=== PATIENT | female | born 1950 | race Caucasian/White ===

== ENCOUNTER 2023-06-27 14:04 | Inpatient (IN) | payer BC, MEDICARE ==
[~2023-06-27] VITALS: Ht 147.3 cm; Wt 73.9 kg
[2023-06-27 14:04] VITALS: BP_SYST 170; PULSE 72; RESP 14; TEMP 97.4; O2SAT 97
[2023-06-27] MEDS ORDERED: METF-379 PO (14:35)
[2023-06-27] MEDS ORDERED: GABA300T25 PO (14:35)
[2023-06-27] MEDS ORDERED: OXYB10TA30 PO (14:35)
[2023-06-27] MEDS ORDERED: GEMF600T89 PO (14:35)
[2023-06-27] MEDS ORDERED: ATEN50TA PO (14:35)
[2023-06-27] MEDS ORDERED: FURO-150 PO (14:37)
[2023-06-27] MEDS ORDERED: [UNRECOGNIZED DRUG - CODE] PO (14:39)
[2023-06-27 14:45] LABS: BASOPHILS # (AUTO) 0.1 K/uL (0.0-0.2); BASOPHILS % (AUTO) 0.6 % (0.0-2.0); EOSINOPHILS # (AUTO) 0.5 K/uL (0.0-0.4); EOSINOPHILS % (AUTO) 5.1 % (0.0-4.0); HEMATOCRIT 37.5 % (36-48); LYMPHOCYTES # (AUTO) 1.9 K/uL (1.0-5.5); LYMPHOCYTES % (AUTO) 20.5 % (20.5-51.5); MEAN CORPUSCULAR HEMOGLOBIN 30 pg (27-31); MEAN CORPUSCULAR HGB CONC 35 % (32-36); MEAN CORPUSCULAR VOLUME 86 fL (79.0-98.0); MONOCYTES # (AUTO) 0.6 K/uL (0.0-1.0); MONOCYTES % (AUTO) 6.5 % (1.7-9.3); NEUTROPHILS # (AUTO) 6.1 K/uL (1.8-7.7); NEUTROPHILS % (AUTO) 67.3 % (40.0-70.0); PLATELET COUNT (AUTO) 257 K/uL (130-430); RED BLOOD CELL COUNT(AUTO) 4.34 MIL/uL (4.2-6.2); RED CELL DISTRIBUTION WIDTH 14.7 % (9.0-15.0)
[2023-06-27 14:53] LABS: ANION GAP 12 (5-15); CALCIUM 9.8 mg/dL (8.4-11.0); CARBON DIOXIDE 26 mmol/L (23-29); CHLORIDE 103 mmol/L (98-107); CREATININE 0.65 mg/dL (0.55-1.30); GLUCOSE 143 mg/dL (74-106); POTASSIUM 3.9 mmol/L (3.5-5.1); SODIUM SERUM 141 mmol/L (136-145); UREA NITROGEN, BLOOD 9 mg/dL (8-21)
[2023-06-27] MEDS ORDERED: IOHEXOL 350 mgI/mL, 150 ML INFUS..BTL IV ONE (16:09)
[2023-06-27 16:29] LABS: ALBUMIN 3.6 g/dL (3.4-4.8); BILIRUBIN,DIRECT 0.1 mg/dL (0.0-0.3); TOTAL BILIRUBIN 0.4 mg/dL (0.0-1.0)
[2023-06-27 17:12] LABS: BILIRUBIN,URINE NEGATIVE (NEGATIVE); BLOOD, URINE NEGATIVE (NEGATIVE); CLARITY/URINE CLEAR (CLEAR); COLOR,URINE YELLOW (YELLOW); GLUCOSE,URINE NEGATIVE (NEGATIVE); KETONES,URINE NEGATIVE (NEGATIVE); NITRITE, URINE NEGATIVE (NEGATIVE); PROTEIN URINE NEGATIVE (NEGATIVE); UROBILINOGEN,URINE 0.2 (0.2-1.0)
[2023-06-27 17:17] LABS: LEUKOCYTE ESTERASE ,URINE TRACE (NEGATIVE)
[2023-06-27 17:18] LABS: BACTERIA,URINE MODERATE /HPF (None Seen); MUCUS,URINE None Seen /LPF (None Seen); RBC,URINE 0-3 /HPF (0-3)
[2023-06-27 18:08] VITALS: BP_SYST 179; PULSE 73; RESP 19; TEMP 97.9; O2SAT 98
[2023-06-27] MEDS ORDERED: DEXTROSE 50% JECT 50 ML DISP.SYRIN IVP PRN (19:00)
[2023-06-27] MEDS ORDERED: GLUCOSE (DEXTROSE) ORAL GEL -Adults PO PRN (19:00)
[2023-06-27] MEDS ORDERED: D5W 1,000 ML IV PRN (19:00)
[2023-06-27] MEDS: hydrALAZINE HCL 20 MG/ML VIAL IVP PRN (20:23)
[2023-06-27] MEDS: D5/0.45 NS 1,000 ML IV SCH (20:23)
[2023-06-27] MEDS ORDERED: LORazepam 2 MG/ML VIAL IVP PRN (21:30)
[2023-06-27] MEDS ORDERED: ONDANSETRON HCL 4 MG/2 ML VIAL IVP PRN (21:30)
[2023-06-27 22:00] VITALS: BP_SYST 157; PULSE 74; RESP 20; TEMP 98.5; O2SAT 95
[2023-06-28 00:18] VITALS: BP_SYST 109; PULSE 80; RESP 16; TEMP 97.9; O2SAT 94
[2023-06-28 06:08] LABS: ALANINE AMINOTRANSFERASE 23 U/L (12-78); ALBUMIN 3.7 g/dL (3.4-4.8); ANION GAP 14 (5-15); ASPARTATE AMINOTRANSFERASE 17 U/L (10-37); CALCIUM 9.8 mg/dL (8.4-11.0); CARBON DIOXIDE 25 mmol/L (23-29); CHLORIDE 102 mmol/L (98-107); CREATININE 0.66 mg/dL (0.55-1.30); GLUCOSE 152 mg/dL (74-106); PHOSPHORUS 4.3 mg/dL (2.7-4.5); POTASSIUM 3.8 mmol/L (3.5-5.1); SODIUM SERUM 141 mmol/L (136-145); TOTAL BILIRUBIN 0.5 mg/dL (0.0-1.0); TOTAL PROTEIN, SERUM 7.3 g/dL (6.4-8.3); UREA NITROGEN, BLOOD 12 mg/dL (8-21)
[2023-06-28 06:10] LABS: BASOPHILS % (AUTO) 0.3 % (0.0-2.0); EOSINOPHILS # (AUTO) 0.2 K/uL (0.0-0.4); EOSINOPHILS % (AUTO) 1.4 % (0.0-4.0); HEMATOCRIT 37.8 % (36-48); HEMOGLOBIN 13.3 g/dL (12.0-16.0); LYMPHOCYTES % (AUTO) 18.4 % (20.5-51.5); MEAN CORPUSCULAR HEMOGLOBIN 30 pg (27-31); MEAN CORPUSCULAR HGB CONC 35 % (32-36); MEAN CORPUSCULAR VOLUME 85 fL (79.0-98.0); MONOCYTES # (AUTO) 0.5 K/uL (0.0-1.0); NEUTROPHILS % (AUTO) 74.9 % (40.0-70.0); PLATELET COUNT (AUTO) 277 K/uL (130-430); RED BLOOD CELL COUNT(AUTO) 4.44 MIL/uL (4.2-6.2); RED CELL DISTRIBUTION WIDTH 14.5 % (9.0-15.0); WHITE BLOOD COUNT (AUTO) 10.7 K/uL (4.8-10.8)
[2023-06-28] MEDS: D5/0.45 NS 1,000 ML IV SCH ×2 (06:57→15:00)
[2023-06-28 08:00] VITALS: BP_SYST 161; PULSE 71; RESP 18; TEMP 97.8; O2SAT 97
[2023-06-28] MEDS: hydrALAZINE HCL 20 MG/ML VIAL IVP PRN (09:00)
[2023-06-28] MEDS ORDERED: ASPIRIN 81 MG TAB.CHEW PO ONE (10:45)
[2023-06-28] MEDS ORDERED: ATORVASTATIN 20 MG TABLET PO ONE (11:00)
[2023-06-28] MEDS ORDERED: CLOPIDOGREL BISULFATE 75 MG TABLET PO ONE (11:00)
[2023-06-28 11:14] VITALS: BP_SYST 130; PULSE 89; RESP 16; TEMP 96.5; O2SAT 99
[2023-06-28] MEDS: ACETAMINOPHEN 325 MG TABLET PO PRN (11:27)
[2023-06-28 15:31] VITALS: BP_SYST 136; PULSE 85; RESP 16; TEMP 97.2; O2SAT 93
[2023-06-28] MEDS: INSULIN REGULAR, HUMAN 100 UNITS/ML, 3 ML VIAL (humuLIN R) SUBCUT PRN (19:11)
[2023-06-28 20:00] VITALS: BP_SYST 156; PULSE 89; RESP 18; TEMP 98.8; O2SAT 96
[2023-06-29] VITALS (7 sets, daily range): BP systolic 140–172; PULSE 70–89; RESP 16–18; TEMP 97–99; O2SAT 92–98
[2023-06-29] MEDS: D5/0.45 NS 1,000 ML IV SCH ×3 (00:40→21:09)
[2023-06-29] MEDS: INSULIN REGULAR, HUMAN 100 UNITS/ML, 3 ML VIAL (humuLIN R) SUBCUT PRN ×4 (00:47→17:51)
[2023-06-29] MEDS: ASPIRIN 81 MG TABLET(ECOTRIN) PO SCH (08:33)
[2023-06-29] MEDS: ATORVASTATIN 20 MG TABLET PO SCH (08:33)
[2023-06-29] MEDS: CLOPIDOGREL BISULFATE 75 MG TABLET PO SCH (08:33)
[2023-06-29] MEDS ORDERED: levoFLOXacin 500 MG TABLET PO ONE (13:00)
[2023-06-29] MEDS: hydrALAZINE HCL 20 MG/ML VIAL IVP PRN (21:09)
[2023-06-30] VITALS (7 sets, daily range): BP systolic 137–157; PULSE 70–90; RESP 16–20; TEMP 96.8–97.9; O2SAT 95–98
[2023-06-30] MEDS: INSULIN REGULAR, HUMAN 100 UNITS/ML, 3 ML VIAL (humuLIN R) SUBCUT PRN ×4 (00:38→17:09)
[2023-06-30] MEDS: ACETAMINOPHEN 325 MG TABLET PO PRN ×2 (01:41→10:45)
[2023-06-30 05:16] LABS: BASOPHILS # (AUTO) 0.1 K/uL (0.0-0.2); BASOPHILS % (AUTO) 0.5 % (0.0-2.0); EOSINOPHILS # (AUTO) 0.2 K/uL (0.0-0.4); EOSINOPHILS % (AUTO) 2.1 % (0.0-4.0); HEMATOCRIT 35.7 % (36-48); HEMOGLOBIN 12.7 g/dL (12.0-16.0); LYMPHOCYTES # (AUTO) 2.6 K/uL (1.0-5.5); LYMPHOCYTES % (AUTO) 23.8 % (20.5-51.5); MEAN CORPUSCULAR HEMOGLOBIN 30 pg (27-31); MEAN CORPUSCULAR HGB CONC 36 % (32-36); MEAN CORPUSCULAR VOLUME 85 fL (79.0-98.0); MONOCYTES # (AUTO) 0.9 K/uL (0.0-1.0); MONOCYTES % (AUTO) 8.1 % (1.7-9.3); NEUTROPHILS # (AUTO) 7.1 K/uL (1.8-7.7); NEUTROPHILS % (AUTO) 65.5 % (40.0-70.0); PLATELET COUNT (AUTO) 271 K/uL (130-430); RED BLOOD CELL COUNT(AUTO) 4.19 MIL/uL (4.2-6.2); RED CELL DISTRIBUTION WIDTH 14.8 % (9.0-15.0); WHITE BLOOD COUNT (AUTO) 10.8 K/uL (4.8-10.8)
[2023-06-30 05:42] LABS: ANION GAP 13 (5-15); CALCIUM 9.1 mg/dL (8.4-11.0); CARBON DIOXIDE 23 mmol/L (23-29); CHLORIDE 103 mmol/L (98-107); CREATININE 0.61 mg/dL (0.55-1.30); GLUCOSE 200 mg/dL (74-106); POTASSIUM 3.4 mmol/L (3.5-5.1); SODIUM SERUM 139 mmol/L (136-145); UREA NITROGEN, BLOOD 9 mg/dL (8-21)
[2023-06-30] MEDS ORDERED: POTASSIUM CHLORIDE 20 MEQ/PKT PACKET PO ONE (07:00)
[2023-06-30] MEDS: ATORVASTATIN 20 MG TABLET PO SCH (08:48)
[2023-06-30] MEDS: CLOPIDOGREL BISULFATE 75 MG TABLET PO SCH (08:48)
[2023-06-30] MEDS: levoFLOXacin 500 MG TABLET PO SCH (08:49)
[2023-06-30] MEDS: ASPIRIN 81 MG TABLET(ECOTRIN) PO SCH (08:56)
[2023-06-30] MEDS: D5/0.45 NS 1,000 ML IV SCH ×2 (08:57→17:00)
[2023-06-30] MEDS ORDERED: LOSARTAN POTASSIUM 25 MG TABLET PO SCH (09:00)
[2023-06-30] MEDS ORDERED: CLOP75TA32 PO (13:09)
[2023-06-30] MEDS ORDERED: ASA81 PO (13:09)
[2023-06-30] MEDS ORDERED: ATOR-1 PO (13:09)
[2023-06-30 14:37] LABS: CHOLESTEROL 187 mg/dL (<200); HDL CHOLESTEROL 51 mg/dL (>55); TRIGLYCERIDES 89 mg/dL (30-150)
[2023-06-30] MEDS: LOSARTAN POTASSIUM 25 MG TABLET PO SCH (23:01)
[2023-07-01] MEDS: INSULIN REGULAR, HUMAN 100 UNITS/ML, 3 ML VIAL (humuLIN R) SUBCUT PRN ×4 (01:26→17:16)
[2023-07-01 01:41] VITALS: BP_SYST 168; PULSE 85; RESP 18; TEMP 97.4; O2SAT 95
[2023-07-01 07:22] LABS: ANION GAP 13 (5-15); CALCIUM 9.9 mg/dL (8.4-11.0); CARBON DIOXIDE 23 mmol/L (23-29); CHLORIDE 103 mmol/L (98-107); CREATININE 0.55 mg/dL (0.55-1.30); GLUCOSE 167 mg/dL (74-106); POTASSIUM 3.5 mmol/L (3.5-5.1); SODIUM SERUM 139 mmol/L (136-145); UREA NITROGEN, BLOOD 14 mg/dL (8-21)
[2023-07-01 08:00] VITALS: BP_SYST 132; PULSE 85; RESP 17; TEMP 97.6; O2SAT 97
[2023-07-01 08:26] LABS: BASOPHILS % (AUTO) 0.5 % (0.0-2.0); EOSINOPHILS # (AUTO) 0.3 K/uL (0.0-0.4); EOSINOPHILS % (AUTO) 2.7 % (0.0-4.0); HEMATOCRIT 37.5 % (36-48); HEMOGLOBIN 13.1 g/dL (12.0-16.0); LYMPHOCYTES % (AUTO) 18.4 % (20.5-51.5); MEAN CORPUSCULAR HEMOGLOBIN 30 pg (27-31); MEAN CORPUSCULAR HGB CONC 35 % (32-36); MEAN CORPUSCULAR VOLUME 86 fL (79.0-98.0); MONOCYTES # (AUTO) 0.8 K/uL (0.0-1.0); MONOCYTES % (AUTO) 7.5 % (1.7-9.3); NEUTROPHILS # (AUTO) 7.7 K/uL (1.8-7.7); NEUTROPHILS % (AUTO) 70.9 % (40.0-70.0); PLATELET COUNT (AUTO) 260 K/uL (130-430); RED BLOOD CELL COUNT(AUTO) 4.38 MIL/uL (4.2-6.2); RED CELL DISTRIBUTION WIDTH 14.8 % (9.0-15.0); WHITE BLOOD COUNT (AUTO) 10.8 K/uL (4.8-10.8)
[2023-07-01] MEDS: D5/0.45 NS 1,000 ML IV SCH (09:06)
[2023-07-01] MEDS: CLOPIDOGREL BISULFATE 75 MG TABLET PO SCH (09:07)
[2023-07-01] MEDS: ASPIRIN 81 MG TABLET(ECOTRIN) PO SCH (09:07)
[2023-07-01] MEDS: levoFLOXacin 500 MG TABLET PO SCH (09:07)
[2023-07-01] MEDS: ATORVASTATIN 20 MG TABLET PO SCH (09:07)
[2023-07-01] MEDS: LOSARTAN POTASSIUM 25 MG TABLET PO SCH ×2 (09:08→20:05)
[2023-07-01 11:11] VITALS: BP_SYST 141; PULSE 83; RESP 18; TEMP 97.9; O2SAT 95
[2023-07-01] MEDS: ACETAMINOPHEN 325 MG TABLET PO PRN (11:43)
[2023-07-01] MEDS: NORMAL SALINE 5 ML DISP.SYRIN IVF SCH ×2 (14:00→20:06)
[2023-07-01 16:45] VITALS: BP_SYST 140; PULSE 78; RESP 17; TEMP 98; O2SAT 96
[2023-07-01 20:00] VITALS: BP_SYST 158; PULSE 75; RESP 18; TEMP 97.8; O2SAT 97
[2023-07-02] VITALS: BP_SYST 148; PULSE 78; RESP 18; TEMP 97.6; O2SAT 98
[2023-07-02] MEDS: INSULIN REGULAR, HUMAN 100 UNITS/ML, 3 ML VIAL (humuLIN R) SUBCUT PRN ×3 (06:17→20:52)
[2023-07-02] MEDS: NORMAL SALINE 5 ML DISP.SYRIN IVF SCH ×2 (06:21→16:55)
[2023-07-02 07:38] LABS: ANION GAP 10 (5-15); CALCIUM 9.3 mg/dL (8.4-11.0); CARBON DIOXIDE 26 mmol/L (23-29); CHLORIDE 103 mmol/L (98-107); CREATININE 0.53 mg/dL (0.55-1.30); GLUCOSE 158 mg/dL (74-106); POTASSIUM 3.5 mmol/L (3.5-5.1); SODIUM SERUM 139 mmol/L (136-145); UREA NITROGEN, BLOOD 13 mg/dL (8-21)
[2023-07-02 07:39] LABS: BASOPHILS % (AUTO) 0.4 % (0.0-2.0); EOSINOPHILS # (AUTO) 0.3 K/uL (0.0-0.4); EOSINOPHILS % (AUTO) 2.9 % (0.0-4.0); HEMATOCRIT 36.5 % (36-48); HEMOGLOBIN 12.7 g/dL (12.0-16.0); LYMPHOCYTES # (AUTO) 1.9 K/uL (1.0-5.5); LYMPHOCYTES % (AUTO) 17.6 % (20.5-51.5); MEAN CORPUSCULAR HEMOGLOBIN 30 pg (27-31); MEAN CORPUSCULAR HGB CONC 35 % (32-36); MEAN CORPUSCULAR VOLUME 85 fL (79.0-98.0); MONOCYTES # (AUTO) 0.8 K/uL (0.0-1.0); MONOCYTES % (AUTO) 7.3 % (1.7-9.3); NEUTROPHILS # (AUTO) 7.8 K/uL (1.8-7.7); NEUTROPHILS % (AUTO) 71.8 % (40.0-70.0); PLATELET COUNT (AUTO) 256 K/uL (130-430); RED BLOOD CELL COUNT(AUTO) 4.29 MIL/uL (4.2-6.2); RED CELL DISTRIBUTION WIDTH 14.6 % (9.0-15.0); WHITE BLOOD COUNT (AUTO) 10.8 K/uL (4.8-10.8)
[2023-07-02 07:59] LABS: ERYTHROCYTE SEDIMENTATION RATE 15 MM/HR (0-20)
[2023-07-02 08:00] VITALS: BP_SYST 142; PULSE 71; RESP 17; TEMP 97.4; O2SAT 97
[2023-07-02] MEDS: levoFLOXacin 500 MG TABLET PO SCH (09:14)
[2023-07-02] MEDS: CLOPIDOGREL BISULFATE 75 MG TABLET PO SCH (09:15)
[2023-07-02] MEDS: ASPIRIN 81 MG TABLET(ECOTRIN) PO SCH (09:15)
[2023-07-02] MEDS: ATORVASTATIN 20 MG TABLET PO SCH (09:15)
[2023-07-02] MEDS: LOSARTAN POTASSIUM 25 MG TABLET PO SCH ×2 (09:15→20:47)
[2023-07-02] MEDS ORDERED: ACETYLCYSTEINE PO ONE (09:30)
[2023-07-02 11:04] VITALS: BP_SYST 134; PULSE 44; RESP 16; TEMP 96.2; O2SAT 99
[2023-07-02 15:13] VITALS: BP_SYST 141; PULSE 88; RESP 16; TEMP 96.1; O2SAT 93
[2023-07-02] MEDS: ACETAMINOPHEN 325 MG TABLET PO PRN (16:55)
[2023-07-02 17:17] VITALS: BP_SYST 142; PULSE 71; RESP 17; TEMP 97.4; O2SAT 97
== END 2023-07-02 21:50 | DRG 65 ==
LOC: SED 14:04 → STU 16:14 → SMU 06-30 14:50
PROVIDERS: ADMIT Preventive Medicine Preventive Medicine/Occupational Environmental Medicine; ATTEND Preventive Medicine Preventive Medicine/Occupational Environmental Medicine
DX: I63.9 Cerebral infarction, unspecified (principal); G81.94 Hemiplegia, unspecified affecting left nondominant side; N39.0 Urinary tract infection, site not specified; I10 Essential (primary) hypertension; B96.1 Klebsiella pneumoniae [K. pneumoniae] as the cause of diseases classified elsewhere; Z20.822 Contact with and (suspected) exposure to COVID-19; R29.705 NIHSS score 5; R29.810 Facial weakness; R47.1 Dysarthria and anarthria; E11.65 Type 2 diabetes mellitus with hyperglycemia; Z88.0 Allergy status to penicillin; Z90.49 Acquired absence of other specified parts of digestive tract
CPT/HCPCS: 36415; 70450; 70496; 70498; 70551; 71045; 71275; 76376; 80048; 80053; 80061; 80076; 81000; 81001; 81015; 82962; 83735; 83880; 84100; 84484; 85025; 85610-TC; 85651-TC; 85730-TC; 86886; 86900; 86901; 87086; 92610-GN; 93005; 93306; 97110-GO; 97110-GP; 97112-GO; 97112-GP; 97116-GP; 97530-GP; 97535-GO; 99291; G0378; J0360; J1815; J2060; Q9967

== ENCOUNTER 2023-07-23 13:19 | Inpatient (IN) | payer MEDICARE ==
[~2023-07-23] VITALS: Ht 147.3 cm; Wt 69.4 kg
[~2023-07-23 13:19] MED LIST: ASA81 PO; ATEN50TA PO; ATOR-1 PO; CLOP75TA32 PO; FURO-150 PO; GABA300T25 PO; GEMF600T89 PO; METF-379 PO; OXYB10TA30 PO; [UNRECOGNIZED DRUG - CODE] PO
[2023-07-23 13:25] VITALS: BP_SYST 95; PULSE 66; RESP 18; TEMP 98.2; O2SAT 98
[2023-07-23 14:36] LABS: BASOPHILS # (AUTO) 0.1 K/uL (0.0-0.2); BASOPHILS % (AUTO) 0.8 % (0.0-2.0); EOSINOPHILS # (AUTO) 0.8 K/uL (0.0-0.4); EOSINOPHILS % (AUTO) 4.6 % (0.0-4.0); HEMATOCRIT 25.6 % (36-48); HEMOGLOBIN 8.7 g/dL (12.0-16.0); LYMPHOCYTES # (AUTO) 1.8 K/uL (1.0-5.5); LYMPHOCYTES % (AUTO) 10.8 % (20.5-51.5); MEAN CORPUSCULAR HEMOGLOBIN 30 pg (27-31); MEAN CORPUSCULAR HGB CONC 34 % (32-36); MEAN CORPUSCULAR VOLUME 87 fL (79.0-98.0); MONOCYTES # (AUTO) 0.9 K/uL (0.0-1.0); MONOCYTES % (AUTO) 5.4 % (1.7-9.3); NEUTROPHILS # (AUTO) 13.4 K/uL (1.8-7.7); NEUTROPHILS % (AUTO) 78.4 % (40.0-70.0); PLATELET COUNT (AUTO) 349 K/uL (130-430); RED BLOOD CELL COUNT(AUTO) 2.96 MIL/uL (4.2-6.2); RED CELL DISTRIBUTION WIDTH 15.4 % (9.0-15.0)
[2023-07-23] MEDS: NACL 0.9% 1,000 ML IV ONE ×2 (14:39→16:00)
[2023-07-23] MEDS ORDERED: ONDANSETRON HCL 4 MG/2 ML VIAL ONE (14:43)
[2023-07-23] MEDS: ONDANSETRON HCL 4 MG/2 ML VIAL IVP ONE (14:48)
[2023-07-23 14:53] LABS: ALANINE AMINOTRANSFERASE 16 U/L (12-78); ALBUMIN 2.5 g/dL (3.4-4.8); ANION GAP 13 (5-15); ASPARTATE AMINOTRANSFERASE 21 U/L (10-37); BILIRUBIN,DIRECT 0.2 mg/dL (0.0-0.3); CALCIUM 10.5 mg/dL (8.4-11.0); CARBON DIOXIDE 24 mmol/L (23-29); CHLORIDE 100 mmol/L (98-107); CREATININE 1.67 mg/dL (0.55-1.30); GLUCOSE 167 mg/dL (74-106); POTASSIUM 5.1 mmol/L (3.5-5.1); SODIUM SERUM 137 mmol/L (136-145); TOTAL BILIRUBIN 0.6 mg/dL (0.0-1.0); TOTAL PROTEIN, SERUM 6.3 g/dL (6.4-8.3)
[2023-07-23 14:57] LABS: UREA NITROGEN, BLOOD 113 mg/dL (8-21)
[2023-07-23] MEDS ORDERED: MULT-1193 PO (15:06)
[2023-07-23] MEDS ORDERED: DOCU-156 PO (15:06)
[2023-07-23] MEDS ORDERED: BISA10SU61 RC (15:06)
[2023-07-23] MEDS ORDERED: HYDR-3917 PO (15:06)
[2023-07-23] MEDS ORDERED: SENN8.6T19 PO (15:06)
[2023-07-23] MEDS ORDERED: MOM PO (15:06)
[2023-07-23] MEDS: D5/0.45 NS 1,000 ML IV SCH (17:00)
[2023-07-23] MEDS: PANTOPRAZOLE SODIUM 40 MG/VIAL (PROTONIX) IVP ONE (19:00)
[2023-07-23] MEDS ORDERED: PANTOPRAZOLE SODIUM 40 MG/VIAL (PROTONIX) ONE (19:31)
[2023-07-23] MEDS: PANTOPRAZOLE SODIUM 40 MG/VIAL (PROTONIX) IVP SCH (21:00)
[2023-07-23] MEDS ORDERED: NOREPINEPHRINE 4 MG/4 ML VIAL IV ONE (21:03)
[2023-07-23] MEDS: NOREPINEPHRINE BITARTRATE 4 MG in NS 246 ML IV PRN (21:50)
[2023-07-23 22:45] VITALS: BP_SYST 114; PULSE 65; RESP 17; O2SAT 99
[2023-07-23 23:00] VITALS: PULSE 70; RESP 13; O2SAT 99
[2023-07-24] VITALS (30 sets, daily range): BP systolic 90–160; PULSE 55–147; RESP 11–45; TEMP 97.4–98.1; O2SAT 99–100
[2023-07-24] MEDS: NOREPINEPHRINE 4 MG/4 ML VIAL IV ONE (03:49)
[2023-07-24 06:02] LABS: BASOPHILS # (AUTO) 0.1 K/uL (0.0-0.2); BASOPHILS % (AUTO) 0.4 % (0.0-2.0); EOSINOPHILS # (AUTO) 0.2 K/uL (0.0-0.4); EOSINOPHILS % (AUTO) 1.1 % (0.0-4.0); HEMATOCRIT 29.2 % (36-48); LYMPHOCYTES # (AUTO) 2.5 K/uL (1.0-5.5); LYMPHOCYTES % (AUTO) 11.6 % (20.5-51.5); MEAN CORPUSCULAR HEMOGLOBIN 30 pg (27-31); MEAN CORPUSCULAR HGB CONC 34 % (32-36); MEAN CORPUSCULAR VOLUME 89 fL (79.0-98.0); MONOCYTES # (AUTO) 1.4 K/uL (0.0-1.0); MONOCYTES % (AUTO) 6.6 % (1.7-9.3); NEUTROPHILS # (AUTO) 17.2 K/uL (1.8-7.7); NEUTROPHILS % (AUTO) 80.3 % (40.0-70.0); PLATELET COUNT (AUTO) 321 K/uL (130-430); RED BLOOD CELL COUNT(AUTO) 3.29 MIL/uL (4.2-6.2); WHITE BLOOD COUNT (AUTO) 21.4 K/uL (4.8-10.8)
[2023-07-24 06:23] LABS: CARBON DIOXIDE 22 mmol/L (23-29)
[2023-07-24 06:29] LABS: CHLORIDE 111 mmol/L (98-107); POTASSIUM 3.7 mmol/L (3.5-5.1); SODIUM SERUM 144 mmol/L (136-145)
[2023-07-24 06:30] LABS: ANION GAP 11 (5-15); CALCIUM 8.6 mg/dL (8.4-11.0); CREATININE 1.02 mg/dL (0.55-1.30); GLUCOSE 272 mg/dL (74-106); UREA NITROGEN, BLOOD 66 mg/dL (8-21)
[2023-07-24] MEDS ORDERED: LORazepam 2 MG/ML VIAL IVP PRN (08:30)
[2023-07-24] MEDS ORDERED: DOCUSATE SODIUM 100 MG CAPSULE PO PRN (08:30)
[2023-07-24] MEDS ORDERED: MUPIROCIN 2% TOPICAL OINTMENT 22 GM NS PRN (08:30)
[2023-07-24] MEDS ORDERED: MORPHINE 2 MG/ML INJ. SYRINGE IVP PRN ×2 (08:30)
[2023-07-24] MEDS ORDERED: NALOXONE HCL 0.4 MG/ML AMP (NARCAN) IVP PRN ×2 (08:30)
[2023-07-24] MEDS ORDERED: DEXTROSE 50% JECT 50 ML DISP.SYRIN IVP PRN (08:45)
[2023-07-24] MEDS ORDERED: PANTOPRAZOLE SODIUM 40 MG/VIAL (PROTONIX) IVP SCH (09:00)
[2023-07-24] MEDS ORDERED: ACETAMINOPHEN 500 MG TABLET PO PRN ×3 (09:15)
[2023-07-24] MEDS ORDERED: NOREPINEPHR 4 MG/250 mL NS 250 ML IV PRN (09:45)
[2023-07-24] MEDS: INSULIN LISPRO SLIDING SCALE 100 UNITS/ML, 3 ML VIAL (humaLOG) SUBCUT PRN (10:17)
[2023-07-24] MEDS ORDERED: IPRATROPIUM/ALBUTEROL SULFATE 3 ML AMPUL.NEB (DUONEB) INH PRN (11:15)
[2023-07-24] MEDS ORDERED: VANCOMYCIN HCL 750 MG in NS 250 ML IV SCH (12:00)
[2023-07-24] MEDS: metroNIDAZOLE 500 mg/NS 100 ML IV SCH (13:40)
[2023-07-24] MEDS: ONDANSETRON HCL 4 MG/2 ML VIAL IVP PRN (20:30)
[2023-07-24] MEDS: dilTIAZem HCL IVP 5 MG/ML VIAL IVP ONE (21:15)
[2023-07-24] MEDS: CEFEPIME 2 GM in D5W 100 ML IV SCH (21:45)
[2023-07-24 21:54] LABS: BASOPHILS % (AUTO) 0.3 % (0.0-2.0); EOSINOPHILS # (AUTO) 0.3 K/uL (0.0-0.4); EOSINOPHILS % (AUTO) 2.5 % (0.0-4.0); HEMOGLOBIN 7.6 g/dL (12.0-16.0); LYMPHOCYTES # (AUTO) 1.3 K/uL (1.0-5.5); LYMPHOCYTES % (AUTO) 12.6 % (20.5-51.5); MEAN CORPUSCULAR HEMOGLOBIN 31 pg (27-31); MEAN CORPUSCULAR HGB CONC 35 % (32-36); MEAN CORPUSCULAR VOLUME 90 fL (79.0-98.0); MONOCYTES # (AUTO) 0.6 K/uL (0.0-1.0); MONOCYTES % (AUTO) 5.6 % (1.7-9.3); NEUTROPHILS # (AUTO) 8.2 K/uL (1.8-7.7); PLATELET COUNT (AUTO) 204 K/uL (130-430); RED BLOOD CELL COUNT(AUTO) 2.41 MIL/uL (4.2-6.2); RED CELL DISTRIBUTION WIDTH 14.8 % (9.0-15.0); WHITE BLOOD COUNT (AUTO) 10.4 K/uL (4.8-10.8)
[2023-07-24 22:04] LABS: HEMATOCRIT 21.7 % (36-48)
[2023-07-24] MEDS: dilTIAZem HCL IVP 5 MG/ML VIAL ONE (22:34)
[2023-07-25] VITALS (23 sets, daily range): BP systolic 89–153; PULSE 70–116; RESP 14–34; TEMP 97.3–97.8; O2SAT 94–100
[2023-07-25 05:31] LABS: BASOPHILS % (AUTO) 0.4 % (0.0-2.0); EOSINOPHILS # (AUTO) 0.4 K/uL (0.0-0.4); EOSINOPHILS % (AUTO) 3.7 % (0.0-4.0); HEMATOCRIT 26.7 % (36-48); HEMOGLOBIN 9.2 g/dL (12.0-16.0); LYMPHOCYTES # (AUTO) 1.6 K/uL (1.0-5.5); LYMPHOCYTES % (AUTO) 13.4 % (20.5-51.5); MEAN CORPUSCULAR HEMOGLOBIN 30 pg (27-31); MEAN CORPUSCULAR HGB CONC 34 % (32-36); MEAN CORPUSCULAR VOLUME 89 fL (79.0-98.0); MONOCYTES # (AUTO) 0.7 K/uL (0.0-1.0); MONOCYTES % (AUTO) 6.4 % (1.7-9.3); NEUTROPHILS # (AUTO) 8.9 K/uL (1.8-7.7); NEUTROPHILS % (AUTO) 76.1 % (40.0-70.0); PLATELET COUNT (AUTO) 212 K/uL (130-430); RED BLOOD CELL COUNT(AUTO) 3.01 MIL/uL (4.2-6.2); WHITE BLOOD COUNT (AUTO) 11.7 K/uL (4.8-10.8)
[2023-07-25 05:59] LABS: ALANINE AMINOTRANSFERASE 19 U/L (12-78); ANION GAP 11 (5-15); ASPARTATE AMINOTRANSFERASE 17 U/L (10-37); CALCIUM 8.9 mg/dL (8.4-11.0); CARBON DIOXIDE 22 mmol/L (23-29); CHLORIDE 113 mmol/L (98-107); CHOLESTEROL 141 mg/dL (<200); CREATININE 0.63 mg/dL (0.55-1.30); GLUCOSE 166 mg/dL (74-106); HDL CHOLESTEROL 41 mg/dL (>55); LIPASE 43 U/L (16-77); POTASSIUM 3.2 mmol/L (3.5-5.1); SODIUM SERUM 146 mmol/L (136-145); THYROID STIMULATING HORMONE 5.63 uIu/mL (0.34-4.82); TOTAL BILIRUBIN 0.4 mg/dL (0.0-1.0); TRIGLYCERIDES 106 mg/dL (30-150); UREA NITROGEN, BLOOD 28 mg/dL (8-21)
[2023-07-25] MEDS: fentaNYL CITRATE/PF 100 MCG/2 ML AMP ONE (07:38)
[2023-07-25] MEDS: MIDAZOLAM HCL 5 MG/5 ML VIAL ONE (07:39)
[2023-07-25] MEDS: POTASSIUM CHLORIDE 20 MEQ TABLET.ER PO PRN (10:50)
[2023-07-25 14:09] LABS: BILIRUBIN,URINE 2+ (NEGATIVE); BLOOD, URINE NEGATIVE (NEGATIVE); CLARITY/URINE CLEAR (CLEAR); COLOR,URINE YELLOW (YELLOW); GLUCOSE,URINE NEGATIVE (NEGATIVE); KETONES,URINE NEGATIVE (NEGATIVE); LEUKOCYTE ESTERASE ,URINE NEGATIVE (NEGATIVE); NITRITE, URINE NEGATIVE (NEGATIVE); PROTEIN URINE NEGATIVE (NEGATIVE); UROBILINOGEN,URINE 0.2 (0.2-1.0)
[2023-07-25 14:27] LABS: BACTERIA,URINE None Seen /HPF (None Seen); MUCUS,URINE None Seen /LPF (None Seen); RBC,URINE 0-3 /HPF (0-3); WBC,URINE 0-3 /HPF (0-3)
[2023-07-25] MEDS ORDERED: BISACODYL 5 MG TABLET.DR (DULCOLAX) PO ONE (17:00)
[2023-07-25] MEDS: GOLYTELY / COLYTE SOLUTION 4 LITERS PO ONE (17:08)
[2023-07-25] MEDS: BISACODYL 5 MG TABLET.DR (DULCOLAX) PO ONE (17:58)
[2023-07-25] MEDS: ZOLPIDEM TARTRATE 5 MG TABLET PO PRN (23:15)
[2023-07-26] VITALS (15 sets, daily range): BP systolic 85–176; PULSE 74–105; RESP 17–25; TEMP 97.7–98.4; O2SAT 92–97
[2023-07-26 05:54] LABS: BASOPHILS # (AUTO) 0.1 K/uL (0.0-0.2); BASOPHILS % (AUTO) 0.5 % (0.0-2.0); EOSINOPHILS # (AUTO) 0.3 K/uL (0.0-0.4); HEMOGLOBIN 7.6 g/dL (12.0-16.0); LYMPHOCYTES # (AUTO) 1.2 K/uL (1.0-5.5); LYMPHOCYTES % (AUTO) 12.6 % (20.5-51.5); MEAN CORPUSCULAR HEMOGLOBIN 31 pg (27-31); MEAN CORPUSCULAR HGB CONC 35 % (32-36); MEAN CORPUSCULAR VOLUME 89 fL (79.0-98.0); MONOCYTES # (AUTO) 0.6 K/uL (0.0-1.0); MONOCYTES % (AUTO) 6.7 % (1.7-9.3); NEUTROPHILS # (AUTO) 7.3 K/uL (1.8-7.7); NEUTROPHILS % (AUTO) 77.2 % (40.0-70.0); PLATELET COUNT (AUTO) 239 K/uL (130-430); RED BLOOD CELL COUNT(AUTO) 2.48 MIL/uL (4.2-6.2); RED CELL DISTRIBUTION WIDTH 15.3 % (9.0-15.0); WHITE BLOOD COUNT (AUTO) 9.5 K/uL (4.8-10.8)
[2023-07-26 06:06] LABS: ANION GAP 11 (5-15); CALCIUM 8.7 mg/dL (8.4-11.0); CARBON DIOXIDE 23 mmol/L (23-29); CHLORIDE 113 mmol/L (98-107); CREATININE 0.48 mg/dL (0.55-1.30); GLUCOSE 130 mg/dL (74-106); SODIUM SERUM 147 mmol/L (136-145); UREA NITROGEN, BLOOD 11 mg/dL (8-21)
[2023-07-26 06:32] LABS: POTASSIUM 2.5 mmol/L (3.5-5.1)
[2023-07-26] MEDS: SIMETHICONE 40 MG/0.6 ML ML ONE (07:22)
[2023-07-26] MEDS: KCL 20 mEq in 100 mL (PREMIX) 200 ML IV ONE (08:41)
[2023-07-26] MEDS: MIDAZOLAM HCL 5 MG/5 ML VIAL ONE (10:37)
[2023-07-26] MEDS: MEPERIDINE 100 MG INJ. 100 MG/ML VIAL ONE (10:37)
[2023-07-26] MEDS: POLYETHYLENE GLYCOL 3350, 17 GM/ POWD.PACK PO ONE (12:24)
[2023-07-26] MEDS: FUROSEMIDE 20 MG/2 ML VIAL IVP SCH (17:11)
[2023-07-26] MEDS: MAGNESIUM SULFATE 50 ML IV PRN (17:15)
[2023-07-27] VITALS (7 sets, daily range): BP systolic 122–165; PULSE 77–87; RESP 18–22; TEMP 97.1–98.4; O2SAT 94–99
[2023-07-27 05:11] LABS: BASOPHILS % (AUTO) 0.5 % (0.0-2.0); EOSINOPHILS # (AUTO) 0.5 K/uL (0.0-0.4); EOSINOPHILS % (AUTO) 5.8 % (0.0-4.0); HEMOGLOBIN 7.3 g/dL (12.0-16.0); LYMPHOCYTES # (AUTO) 1.8 K/uL (1.0-5.5); LYMPHOCYTES % (AUTO) 22.2 % (20.5-51.5); MEAN CORPUSCULAR HEMOGLOBIN 31 pg (27-31); MEAN CORPUSCULAR HGB CONC 35 % (32-36); MEAN CORPUSCULAR VOLUME 90 fL (79.0-98.0); MONOCYTES # (AUTO) 0.5 K/uL (0.0-1.0); MONOCYTES % (AUTO) 6.1 % (1.7-9.3); NEUTROPHILS # (AUTO) 5.4 K/uL (1.8-7.7); NEUTROPHILS % (AUTO) 65.4 % (40.0-70.0); PLATELET COUNT (AUTO) 262 K/uL (130-430); RED BLOOD CELL COUNT(AUTO) 2.35 MIL/uL (4.2-6.2); WHITE BLOOD COUNT (AUTO) 8.3 K/uL (4.8-10.8)
[2023-07-27 05:28] LABS: ANION GAP 12 (5-15); CALCIUM 8.5 mg/dL (8.4-11.0); CARBON DIOXIDE 23 mmol/L (23-29); CHLORIDE 110 mmol/L (98-107); CREATININE 0.48 mg/dL (0.55-1.30); GLUCOSE 95 mg/dL (74-106); SODIUM SERUM 145 mmol/L (136-145); UREA NITROGEN, BLOOD 6 mg/dL (8-21)
[2023-07-27 06:24] LABS: HEMATOCRIT 21.2 % (36-48)
[2023-07-27 06:38] LABS: POTASSIUM 2.9 mmol/L (3.5-5.1)
[2023-07-27] MEDS: POLYETHYLENE GLYCOL 3350, 17 GM/ POWD.PACK PO SCH (08:49)
[2023-07-27] MEDS: POTASSIUM CHLORIDE 20 MEQ TABLET.ER PO ONE ×2 (10:36→22:00)
[2023-07-27] MEDS ORDERED: POTASSIUM CHLORIDE 20 MEQ TABLET.ER PO SCH (21:00)
[2023-07-28 04:56] LABS: ANION GAP 8 (5-15); BASOPHILS # (AUTO) 0.1 K/uL (0.0-0.2); BASOPHILS % (AUTO) 0.7 % (0.0-2.0); CALCIUM 8.6 mg/dL (8.4-11.0); CARBON DIOXIDE 29 mmol/L (23-29); CHLORIDE 103 mmol/L (98-107); CREATININE 0.49 mg/dL (0.55-1.30); EOSINOPHILS # (AUTO) 0.6 K/uL (0.0-0.4); EOSINOPHILS % (AUTO) 4.8 % (0.0-4.0); GLUCOSE 105 mg/dL (74-106); HEMATOCRIT 26.7 % (36-48); HEMOGLOBIN 9.2 g/dL (12.0-16.0); LYMPHOCYTES # (AUTO) 1.9 K/uL (1.0-5.5); LYMPHOCYTES % (AUTO) 15.6 % (20.5-51.5); MEAN CORPUSCULAR HEMOGLOBIN 31 pg (27-31); MEAN CORPUSCULAR HGB CONC 35 % (32-36); MEAN CORPUSCULAR VOLUME 90 fL (79.0-98.0); MONOCYTES # (AUTO) 0.9 K/uL (0.0-1.0); MONOCYTES % (AUTO) 7.1 % (1.7-9.3); NEUTROPHILS # (AUTO) 8.9 K/uL (1.8-7.7); NEUTROPHILS % (AUTO) 71.8 % (40.0-70.0); PLATELET COUNT (AUTO) 286 K/uL (130-430); RED BLOOD CELL COUNT(AUTO) 2.96 MIL/uL (4.2-6.2); RED CELL DISTRIBUTION WIDTH 15.2 % (9.0-15.0); SODIUM SERUM 140 mmol/L (136-145); UREA NITROGEN, BLOOD 6 mg/dL (8-21)
[2023-07-28 06:33] LABS: POTASSIUM 2.8 mmol/L (3.5-5.1)
[2023-07-28 08:00] VITALS: BP_SYST 157; PULSE 109; RESP 18; TEMP 97.7; O2SAT 96
[2023-07-28] MEDS ORDERED: KCL 40 mEq in 100 mL (PREMIX) 100 ML IV ONE ×2 (08:00→14:00)
[2023-07-28 08:06] LABS: WHITE BLOOD COUNT (AUTO) 12.4 K/uL (4.8-10.8)
[2023-07-28] MEDS: AMIODARONE HCL 200 MG TABLET PO SCH (09:41)
[2023-07-28] MEDS: POTASSIUM CHLORIDE 40 MEQ in NS 250 ML IV ONE ×2 (10:13→17:41)
[2023-07-28 12:00] VITALS: BP_SYST 145; PULSE 103; RESP 18; TEMP 98.7; O2SAT 99
[2023-07-28 16:00] VITALS: BP_SYST 152; PULSE 107; RESP 16; TEMP 97.9; O2SAT 99
[2023-07-28 20:03] VITALS: BP_SYST 166; PULSE 91; RESP 20; TEMP 97
[2023-07-28 20:30] VITALS: O2SAT 98
[2023-07-28 23:30] VITALS: RESP 18; TEMP 97.9; O2SAT 98
[2023-07-29 07:54] VITALS: O2SAT 98
[2023-07-29 07:58] VITALS: BP_SYST 127; PULSE 89; RESP 20; TEMP 97.4; O2SAT 96
[2023-07-29] MEDS: AMIODARONE HCL 200 MG TABLET PO SCH (09:20)
[2023-07-29] MEDS: FUROSEMIDE 20 MG TABLET PO SCH (09:21)
[2023-07-29 11:00] VITALS: BP_SYST 127; PULSE 89; RESP 20; TEMP 98; O2SAT 98
[2023-07-29 11:10] LABS: ANION GAP 7 (5-15); CALCIUM 8.7 mg/dL (8.4-11.0); CARBON DIOXIDE 31 mmol/L (23-29); CHLORIDE 101 mmol/L (98-107); GLUCOSE 188 mg/dL (74-106); POTASSIUM 3.2 mmol/L (3.5-5.1); SODIUM SERUM 139 mmol/L (136-145); UREA NITROGEN, BLOOD 6 mg/dL (8-21)
[2023-07-29 12:43] VITALS: BP_SYST 116; PULSE 92; RESP 17; TEMP 97; O2SAT 95
[2023-07-29 13:39] VITALS: BP_SYST 116; PULSE 92; RESP 17; TEMP 97; O2SAT 97
== END 2023-07-29 14:45 | DRG 871 ==
LOC: SED 13:19 → SMU 16:36 → SIC 22:36 → STU 07-27 06:57
PROVIDERS: ADMIT General Practice; ATTEND General Practice
PROC: 30233N1 Transfusion of Nonautologous Red Blood Cells into Peripheral Vein, Percutaneous Approach (ICD-10-PCS; 2023-07-23)
PROC: 0DB68ZX Excision of Stomach, Via Natural or Artificial Opening Endoscopic, Diagnostic (ICD-10-PCS; principal; 2023-07-25 08:00)
PROC: 0DBE8ZX Excision of Large Intestine, Via Natural or Artificial Opening Endoscopic, Diagnostic (ICD-10-PCS; 2023-07-26)
DX: A41.9 Sepsis, unspecified organism (principal); K25.4 Chronic or unspecified gastric ulcer with hemorrhage; N17.0 Acute kidney failure with tubular necrosis; R65.21 Severe sepsis with septic shock; K29.71 Gastritis, unspecified, with bleeding; D62 Acute posthemorrhagic anemia; E44.0 Moderate protein-calorie malnutrition; I48.20 Chronic atrial fibrillation, unspecified; K62.5 Hemorrhage of anus and rectum; I95.89 Other hypotension; E78.5 Hyperlipidemia, unspecified; I10 Essential (primary) hypertension; I25.10 Atherosclerotic heart disease of native coronary artery without angina pectoris; K62.89 Other specified diseases of anus and rectum; E87.6 Hypokalemia; K52.9 Noninfective gastroenteritis and colitis, unspecified; Z90.710 Acquired absence of both cervix and uterus; Z79.899 Other long term (current) drug therapy; Z79.84 Long term (current) use of oral hypoglycemic drugs; Z79.82 Long term (current) use of aspirin; Z79.02 Long term (current) use of antithrombotics/antiplatelets; Z68.32 Body mass index [BMI] 32.0-32.9, adult; K64.9 Unspecified hemorrhoids
CPT/HCPCS: 36415; 43239; 71045; 76376; 80048; 80053; 80061; 80076; 81000; 81001; 81015; 82948; 83037; 83051; 83690; 83735; 83880; 84443; 85025; 85651; 86886; 86900; 86901; 86920; 87040; 87045-TC; 87046; 87081; 87230; 88305; 88312; 88313; 89055; 93005; 94010; 94760; 96361; 96374; 96375; 97110-GP; 97112-GP; 97530-GP; 99285; C9113; G0378; J0692; J1940; J1956; J2175; J2250; J2405; J3010; J3475; J3480; J3490; J7050; J7060; P9021

== ENCOUNTER 2023-09-07 09:04 | Inpatient (IN) | payer MEDICARE ==
[2023-09-07] VITALS (36 sets, daily range): BP systolic 74–198; PULSE 46–65; RESP 12–16; TEMP 97.7–98.7; O2SAT 86–100
[~2023-09-07] VITALS: Ht 149.9 cm; Wt 73.9 kg
[~2023-09-07 09:04] MED LIST changes: -ASA81 PO; -ATOR-1 PO; +BISA10SU61 RC; -CLOP75TA32 PO; +DOCU-156 PO; +HYDR-3917 PO; +MOM PO; +MULT-1193 PO; +SENN8.6T19 PO
[2023-09-07] MEDS ORDERED: ONDA4TAB11 SL (09:50)
[2023-09-07] MEDS ORDERED: VANORAL PO (09:50)
[2023-09-07] MEDS ORDERED: LACT1CAP69 PO (09:50)
[2023-09-07 09:51] LABS: BASOPHILS % (AUTO) 0.3 % (0.0-2.0); EOSINOPHILS # (AUTO) 0.5 K/uL (0.0-0.4); EOSINOPHILS % (AUTO) 4.7 % (0.0-4.0); HEMATOCRIT 26.7 % (36-48); LYMPHOCYTES # (AUTO) 1.3 K/uL (1.0-5.5); LYMPHOCYTES % (AUTO) 11.7 % (20.5-51.5); MEAN CORPUSCULAR HEMOGLOBIN 29 pg (27-31); MEAN CORPUSCULAR HGB CONC 34 % (32-36); MEAN CORPUSCULAR VOLUME 85 fL (79.0-98.0); MONOCYTES % (AUTO) 8.8 % (1.7-9.3); NEUTROPHILS # (AUTO) 8.2 K/uL (1.8-7.7); NEUTROPHILS % (AUTO) 74.5 % (40.0-70.0); PLATELET COUNT (AUTO) 320 K/uL (130-430); RED BLOOD CELL COUNT(AUTO) 3.14 MIL/uL (4.2-6.2); RED CELL DISTRIBUTION WIDTH 16.7 % (9.0-15.0)
[2023-09-07] MEDS ORDERED: PRO40 PO (09:53)
[2023-09-07] MEDS ORDERED: AMIO200T66 PO (09:53)
[2023-09-07] MEDS: NACL 0.9% 1,000 ML IV ONE ×2 (09:58→17:00)
[2023-09-07 10:06] LABS: ANION GAP 18 (5-15); CARBON DIOXIDE 22 mmol/L (23-29); CHLORIDE 86 mmol/L (98-107); CREATININE 2.58 mg/dL (0.55-1.30); GLUCOSE 123 mg/dL (74-106); POTASSIUM 4.1 mmol/L (3.5-5.1); SODIUM SERUM 126 mmol/L (136-145); UREA NITROGEN, BLOOD 65 mg/dL (8-21)
[2023-09-07 10:13] LABS: ALANINE AMINOTRANSFERASE 8 U/L (12-78); ALBUMIN 1.8 g/dL (3.4-4.8); ASPARTATE AMINOTRANSFERASE 12 U/L (10-37); BILIRUBIN,DIRECT 0.6 mg/dL (0.0-0.3); TOTAL BILIRUBIN 1.2 mg/dL (0.0-1.0); TOTAL PROTEIN, SERUM 5.8 g/dL (6.4-8.3)
[2023-09-07] MEDS ORDERED: MUPIROCIN 2% TOPICAL OINTMENT 22 GM NS PRN (11:15)
[2023-09-07] MEDS ORDERED: DOCUSATE SODIUM 100 MG CAPSULE PO PRN (11:15)
[2023-09-07] MEDS ORDERED: MORPHINE 2 MG/ML INJ. SYRINGE IVP PRN ×2 (11:15)
[2023-09-07] MEDS ORDERED: POTASSIUM CHLORIDE 20 MEQ TABLET.ER PO PRN (11:15)
[2023-09-07] MEDS: D5NS 1,000 ML IV SCH (11:15)
[2023-09-07] MEDS ORDERED: ACETAMINOPHEN 500 MG TABLET PO PRN (13:15)
[2023-09-07] MEDS: MAGNESIUM SULFATE 50 ML IV PRN (13:30)
[2023-09-07] MEDS: LORazepam 2 MG/ML VIAL IVP PRN (13:31)
[2023-09-07] MEDS ORDERED: PIPERACILLIN/TAZO 3.375 GM in NS 50 ML IV SCH (17:00)
[2023-09-07] MEDS: ALBUMIN HUMAN 25% 100 ML IV ONE (17:50)
[2023-09-07] MEDS: VANCOMYCIN HCL ORAL SOLUTION 250 MG/5 ML, 80 ML PO ONE (18:30)
[2023-09-07 19:05] LABS: BILIRUBIN,URINE 2+ (NEGATIVE); BLOOD, URINE NEGATIVE (NEGATIVE); CLARITY/URINE CLEAR (CLEAR); COLOR,URINE YELLOW (YELLOW); GLUCOSE,URINE NEGATIVE (NEGATIVE); KETONES,URINE TRACE (NEGATIVE); LEUKOCYTE ESTERASE ,URINE NEGATIVE (NEGATIVE); NITRITE, URINE NEGATIVE (NEGATIVE); PH,URINE 5.5 (5.0-8.0); PROTEIN URINE NEGATIVE (NEGATIVE); UROBILINOGEN,URINE 0.2 (0.2-1.0)
[2023-09-07 19:59] LABS: BACTERIA,URINE FEW /HPF (None Seen); MUCUS,URINE None Seen /LPF (None Seen); RBC,URINE 0-3 /HPF (0-3); WBC,URINE 0-3 /HPF (0-3)
[2023-09-07] MEDS: VANCOMYCIN HCL ORAL SOLUTION 250 MG/5 ML, 80 ML PO SCH (21:00)
[2023-09-07] MEDS: HEPARIN SODIUM,PORCINE 5,000 UNITS/ML VIAL SUBCUT SCH (21:28)
[2023-09-07] MEDS: metroNIDAZOLE 500 mg/NS 100 ML IV SCH (21:44)
[2023-09-07] MEDS: NOREPINEPHRINE 4 MG/4 ML VIAL IV ONE (21:54)
[2023-09-07] MEDS: NS 1000 ML IV.SOLN IV ONE ×2 (22:45)
[2023-09-07] MEDS ORDERED: NOREPINEPHRINE BITARTRATE 4 MG in NS 246 ML IV PRN (22:45)
[2023-09-08] VITALS (65 sets, daily range): BP systolic 86–156; PULSE 48–85; RESP 12–26; TEMP 96.6–98.5; O2SAT 96–100
[2023-09-08] MEDS: ALBUMIN HUMAN 25% 100 ML IV ONE ×2 (00:03→00:20)
[2023-09-08 05:30] LABS: BASOPHILS # (AUTO) 0.1 K/uL (0.0-0.2); BASOPHILS % (AUTO) 0.6 % (0.0-2.0); EOSINOPHILS # (AUTO) 0.7 K/uL (0.0-0.4); EOSINOPHILS % (AUTO) 8.3 % (0.0-4.0); HEMOGLOBIN 7.5 g/dL (12.0-16.0); LYMPHOCYTES % (AUTO) 10.8 % (20.5-51.5); MEAN CORPUSCULAR HEMOGLOBIN 29 pg (27-31); MEAN CORPUSCULAR HGB CONC 34 % (32-36); MEAN CORPUSCULAR VOLUME 85 fL (79.0-98.0); MONOCYTES % (AUTO) 10.8 % (1.7-9.3); NEUTROPHILS # (AUTO) 6.2 K/uL (1.8-7.7); NEUTROPHILS % (AUTO) 69.5 % (40.0-70.0); PLATELET COUNT (AUTO) 292 K/uL (130-430); RED BLOOD CELL COUNT(AUTO) 2.55 MIL/uL (4.2-6.2); RED CELL DISTRIBUTION WIDTH 16.2 % (9.0-15.0); WHITE BLOOD COUNT (AUTO) 8.9 K/uL (4.8-10.8)
[2023-09-08 06:14] LABS: ANION GAP 14 (5-15); CALCIUM 8.3 mg/dL (8.4-11.0); CARBON DIOXIDE 22 mmol/L (23-29); CHLORIDE 105 mmol/L (98-107); CREATININE 1.53 mg/dL (0.55-1.30); GLUCOSE 130 mg/dL (74-106); HEMATOCRIT 21.8 % (36-48); SODIUM SERUM 141 mmol/L (136-145); UREA NITROGEN, BLOOD 42 mg/dL (8-21)
[2023-09-08 07:57] LABS: POTASSIUM 2.9 mmol/L (3.5-5.1)
[2023-09-08] MEDS ORDERED: POTASSIUM CHLORIDE 40 MEQ in NS 250 ML IV ONE (08:30)
[2023-09-08] MEDS ORDERED: ONDA4TAB55 PO (11:24)
[2023-09-08] MEDS ORDERED: ACET-2634 PO (11:24)
[2023-09-08] MEDS ORDERED: ACET325T53 PO (11:24)
[2023-09-08] MEDS: ZOLPIDEM TARTRATE 5 MG TABLET PO PRN (21:41)
[2023-09-09] VITALS (16 sets, daily range): BP systolic 125–181; PULSE 52–70; RESP 16–25; TEMP 97.5–98.3; O2SAT 96–100
[2023-09-09 06:10] LABS: ALANINE AMINOTRANSFERASE 6 U/L (12-78); ALBUMIN 2.2 g/dL (3.4-4.8); ANION GAP 14 (5-15); ASPARTATE AMINOTRANSFERASE 18 U/L (10-37); CALCIUM 8.6 mg/dL (8.4-11.0); CARBON DIOXIDE 23 mmol/L (23-29); CHLORIDE 109 mmol/L (98-107); CREATININE 0.84 mg/dL (0.55-1.30); GLUCOSE 110 mg/dL (74-106); LIPASE 29 U/L (16-77); POTASSIUM 3.2 mmol/L (3.5-5.1); SODIUM SERUM 146 mmol/L (136-145); THYROID STIMULATING HORMONE 8.02 uIu/mL (0.34-4.82); TOTAL BILIRUBIN 0.7 mg/dL (0.0-1.0); TOTAL PROTEIN, SERUM 5.7 g/dL (6.4-8.3); UREA NITROGEN, BLOOD 23 mg/dL (8-21)
[2023-09-09 08:23] LABS: BASOPHILS # (AUTO) 0.1 K/uL (0.0-0.2); BASOPHILS % (AUTO) 0.6 % (0.0-2.0); EOSINOPHILS # (AUTO) 0.4 K/uL (0.0-0.4); EOSINOPHILS % (AUTO) 4.4 % (0.0-4.0); HEMATOCRIT 26.4 % (36-48); HEMOGLOBIN 8.9 g/dL (12.0-16.0); LYMPHOCYTES # (AUTO) 0.9 K/uL (1.0-5.5); MEAN CORPUSCULAR HEMOGLOBIN 29 pg (27-31); MEAN CORPUSCULAR HGB CONC 34 % (32-36); MEAN CORPUSCULAR VOLUME 87 fL (79.0-98.0); MONOCYTES % (AUTO) 12.3 % (1.7-9.3); NEUTROPHILS # (AUTO) 5.9 K/uL (1.8-7.7); NEUTROPHILS % (AUTO) 71.7 % (40.0-70.0); PLATELET COUNT (AUTO) 267 K/uL (130-430); RED BLOOD CELL COUNT(AUTO) 3.05 MIL/uL (4.2-6.2); RED CELL DISTRIBUTION WIDTH 16.7 % (9.0-15.0); WHITE BLOOD COUNT (AUTO) 8.3 K/uL (4.8-10.8)
[2023-09-09] MEDS: POTASSIUM CHLORIDE 40 MEQ, LIDOCAINE JECT 2% PF 100 MG 50 MG in NS 250 ML IV PRN (09:01)
[2023-09-09] MEDS: D5/0.45 NS 1,000 ML IV SCH (09:45)
[2023-09-09] MEDS: NYSTATIN 15 GM TOPICAL POWDER TP ONE (16:32)
[2023-09-09] MEDS: cloNIDine HCL 0.1 MG TABLET PO PRN (18:55)
[2023-09-09] MEDS: ONDANSETRON HCL 4 MG/2 ML VIAL IVP PRN (20:08)
[2023-09-09] MEDS: ACETAMINOPHEN 500 MG TABLET PO PRN (20:08)
[2023-09-09] MEDS: NYSTATIN 15 GM TOPICAL POWDER TP SCH (21:00)
[2023-09-09] MEDS: HEPARIN SODIUM,PORCINE 5,000 UNITS/ML VIAL SUBCUT SCH (22:08)
[2023-09-10 00:28] VITALS: BP_SYST 117; PULSE 61; RESP 16; TEMP 97.8; O2SAT 99
[2023-09-10 08:46] LABS: BASOPHILS # (AUTO) 0.1 K/uL (0.0-0.2); BASOPHILS % (AUTO) 0.7 % (0.0-2.0); EOSINOPHILS # (AUTO) 0.3 K/uL (0.0-0.4); EOSINOPHILS % (AUTO) 3.6 % (0.0-4.0); HEMATOCRIT 23.2 % (36-48); LYMPHOCYTES # (AUTO) 1.3 K/uL (1.0-5.5); LYMPHOCYTES % (AUTO) 14.7 % (20.5-51.5); MEAN CORPUSCULAR HEMOGLOBIN 30 pg (27-31); MEAN CORPUSCULAR HGB CONC 34 % (32-36); MEAN CORPUSCULAR VOLUME 86 fL (79.0-98.0); MONOCYTES # (AUTO) 0.9 K/uL (0.0-1.0); NEUTROPHILS # (AUTO) 6.3 K/uL (1.8-7.7); PLATELET COUNT (AUTO) 234 K/uL (130-430); WHITE BLOOD COUNT (AUTO) 8.9 K/uL (4.8-10.8)
[2023-09-10 09:12] LABS: ALANINE AMINOTRANSFERASE 7 U/L (12-78); ALBUMIN 2.1 g/dL (3.4-4.8); ANION GAP 10 (5-15); ASPARTATE AMINOTRANSFERASE 9 U/L (10-37); CALCIUM 8.6 mg/dL (8.4-11.0); CARBON DIOXIDE 25 mmol/L (23-29); CHLORIDE 110 mmol/L (98-107); CREATININE 0.82 mg/dL (0.55-1.30); GLUCOSE 130 mg/dL (74-106); SODIUM SERUM 145 mmol/L (136-145); TOTAL BILIRUBIN 0.4 mg/dL (0.0-1.0); TOTAL PROTEIN, SERUM 5.3 g/dL (6.4-8.3); UREA NITROGEN, BLOOD 12 mg/dL (8-21)
[2023-09-10 09:15] LABS: POTASSIUM 2.9 mmol/L (3.5-5.1)
[2023-09-10] MEDS ORDERED: DIATR MEGLU/DIATRIZ SOD 30 ML SOLUTION PO ONE (10:15)
[2023-09-10 11:42] VITALS: O2SAT 97
[2023-09-10 11:46] VITALS: BP_SYST 146; PULSE 56; RESP 17; TEMP 97.4; O2SAT 99
[2023-09-10 14:07] VITALS: BP_SYST 130; PULSE 78; RESP 16; TEMP 97.5; O2SAT 97
[2023-09-10] MEDS: MAGNESIUM SULFATE 50 ML IV ONE (15:45)
[2023-09-10] MEDS: POTASSIUM CHLORIDE 20 MEQ TABLET.ER PO ONE (17:39)
[2023-09-10 17:42] VITALS: BP_SYST 136; PULSE 67; RESP 16; TEMP 97.5; O2SAT 80
[2023-09-10 20:00] VITALS: BP_SYST 153; PULSE 68; RESP 16; TEMP 98.4; O2SAT 98; O2SAT 99
[2023-09-11 01:31] VITALS: BP_SYST 147; PULSE 65; RESP 16; TEMP 97.8; O2SAT 99
[2023-09-11 07:35] VITALS: BP_SYST 143; PULSE 64; RESP 16; TEMP 97; O2SAT 100
[2023-09-11 08:00] VITALS: O2SAT 97
[2023-09-11 08:11] LABS: ANION GAP 10 (5-15); CALCIUM 8.2 mg/dL (8.4-11.0); CARBON DIOXIDE 23 mmol/L (23-29); CHLORIDE 106 mmol/L (98-107); CREATININE 0.65 mg/dL (0.55-1.30); GLUCOSE 111 mg/dL (74-106); SODIUM SERUM 139 mmol/L (136-145); UREA NITROGEN, BLOOD 8 mg/dL (8-21)
[2023-09-11 08:16] LABS: BASOPHILS % (AUTO) 0.4 % (0.0-2.0); EOSINOPHILS # (AUTO) 0.4 K/uL (0.0-0.4); EOSINOPHILS % (AUTO) 4.4 % (0.0-4.0); HEMOGLOBIN 7.2 g/dL (12.0-16.0); LYMPHOCYTES # (AUTO) 1.2 K/uL (1.0-5.5); LYMPHOCYTES % (AUTO) 11.9 % (20.5-51.5); MEAN CORPUSCULAR HEMOGLOBIN 29 pg (27-31); MEAN CORPUSCULAR HGB CONC 33 % (32-36); MEAN CORPUSCULAR VOLUME 87 fL (79.0-98.0); MONOCYTES # (AUTO) 0.8 K/uL (0.0-1.0); MONOCYTES % (AUTO) 8.1 % (1.7-9.3); NEUTROPHILS # (AUTO) 7.7 K/uL (1.8-7.7); NEUTROPHILS % (AUTO) 75.2 % (40.0-70.0); PLATELET COUNT (AUTO) 225 K/uL (130-430); RED BLOOD CELL COUNT(AUTO) 2.51 MIL/uL (4.2-6.2); WHITE BLOOD COUNT (AUTO) 10.2 K/uL (4.8-10.8)
[2023-09-11 09:02] LABS: HEMATOCRIT 21.7 % (36-48)
[2023-09-11] MEDS: MAGNESIUM SULFATE 50 ML IV ONE (09:32)
[2023-09-11] MEDS: POTASSIUM CHLORIDE 20 MEQ TABLET.ER PO PRN (09:45)
[2023-09-11 12:29] VITALS: BP_SYST 148; PULSE 68; RESP 16; TEMP 98.1; O2SAT 100
[2023-09-11 16:05] VITALS: BP_SYST 149; PULSE 67; RESP 16; TEMP 97.6; O2SAT 100
[2023-09-11 20:05] VITALS: BP_SYST 157; PULSE 68; RESP 16; TEMP 97.8; O2SAT 99
[2023-09-11] MEDS: CHOLESTYRAMINE/SUCROSE 4 GM/PACKET PO SCH (21:00)
[2023-09-12 00:36] VITALS: BP_SYST 142; PULSE 72; RESP 16; TEMP 97.4; O2SAT 98
[2023-09-12 08:13] VITALS: BP_SYST 143; PULSE 69; RESP 16; TEMP 98.2; O2SAT 94
[2023-09-12] MEDS ORDERED: L.RH1CAP PO (10:41)
[2023-09-12] MEDS ORDERED: VANC125C10 PO ×2 (10:41→11:16)
[2023-09-12 12:00] VITALS: BP_SYST 175; PULSE 86; RESP 16; TEMP 98.2; O2SAT 98
[2023-09-12] MEDS ORDERED: KCL 20 mEq in 100 mL (PREMIX) 100 ML IV SCH (12:30)
[2023-09-12 17:18] VITALS: BP_SYST 184; PULSE 86; RESP 20; TEMP 98.2; O2SAT 98
[2023-09-12 20:05] VITALS: BP_SYST 133; PULSE 77; RESP 18; TEMP 97.4; O2SAT 96
[2023-09-13 00:30] VITALS: BP_SYST 146; PULSE 76; RESP 18; TEMP 97.9; O2SAT 99
[2023-09-13 07:35] VITALS: BP_SYST 146; PULSE 71; RESP 20; TEMP 97.2; O2SAT 99
[2023-09-13] MEDS: ACETAMINOPHEN 500 MG TABLET PO PRN (08:58)
[2023-09-13 12:00] VITALS: BP_SYST 154; PULSE 82; RESP 20; TEMP 98; O2SAT 97
[2023-09-13 15:22] VITALS: BP_SYST 178; PULSE 75; RESP 20; TEMP 99.5; O2SAT 97
[2023-09-13 20:00] VITALS: BP_SYST 156; PULSE 81; RESP 18; TEMP 98.2; O2SAT 97
== END 2023-09-13 23:21 | disposition home or self-care (01) | DRG 871 ==
LOC: SED 09:04 → SMU 11:09 → STU 15:18 → SIC 18:43 → STU 09-09 12:42
PROVIDERS: ADMIT General Practice; ATTEND General Practice
DX: A41.4 Sepsis due to anaerobes (principal); J69.0 Pneumonitis due to inhalation of food and vomit; N17.0 Acute kidney failure with tubular necrosis; R65.21 Severe sepsis with septic shock; J96.01 Acute respiratory failure with hypoxia; E87.1 Hypo-osmolality and hyponatremia; A04.72 Enterocolitis due to Clostridium difficile, not specified as recurrent; I13.0 Hypertensive heart and chronic kidney disease with heart failure and stage 1 through stage 4 chronic kidney disease, or unspecified chronic kidney disease; K52.9 Noninfective gastroenteritis and colitis, unspecified; D50.0 Iron deficiency anemia secondary to blood loss (chronic); I50.9 Heart failure, unspecified; D63.8 Anemia in other chronic diseases classified elsewhere; E86.0 Dehydration; E78.5 Hyperlipidemia, unspecified; E11.22 Type 2 diabetes mellitus with diabetic chronic kidney disease; N18.9 Chronic kidney disease, unspecified; E87.6 Hypokalemia; I48.0 Paroxysmal atrial fibrillation; Z88.0 Allergy status to penicillin; Z79.2 Long term (current) use of antibiotics; Z79.899 Other long term (current) drug therapy; Z79.84 Long term (current) use of oral hypoglycemic drugs; Z86.73 Personal history of transient ischemic attack (TIA), and cerebral infarction without residual deficits
CPT/HCPCS: 36415; 71045; 76700; 80048; 80053; 80076; 81000; 81001; 81015; 82948; 83037; 83605; 83690; 83735; 83880; 84443; 84484; 85025; 87040; 87045-TC; 87046; 87081; 87086; 87186; 89055; 92610-GN; 93005; 99285; J1644; J2060; J2405; J3370; J3475; J3480; J3490; J7050; Q9964